=== PATIENT | male | born 1965 ===

== ENCOUNTER 2018-02-13 11:57 | Emergency (ER) | payer OTHER ==
[~2018-02-13] VITALS: Ht 172.7 cm; Wt 78.6 kg
[2018-02-13 12:21] LABS: BASO # 0.1 (0.02-0.10); EOS # 0.3 (0.04-0.40); EOS % 3.6 % (0.0-4.0); HEMATOCRIT 46.8 % (42.0-52.0); HEMOGLOBIN 15.6 g/dL (13.5-18.0); LYMPH# 2.7 (1.50-4.00); MEAN CELL VOLUME 91 fl (78-100); MEAN CORPUSCULAR HEMOGLOBIN 30 pg (27-31); MEAN CORPUSCULAR HGB CONC 33 g/dL (33-37); MEAN PLATELET VOLUME 8.9 fl (7.4-10.4); MONO # 0.9 (0.20-0.80); NEU # 3.2 (1.40-6.50); PLATELET COUNT 313 K/mm3 (130-400); RED BLOOD COUNT 5.16 M/mm3 (4.20-5.60); RED CELL DISTRIBUTION WIDTH 13.9 % (11.5-14.5); WHITE BLOOD COUNT 7.2 K/mm3 (4.8-10.8)
[2018-02-13] MEDS ORDERED: antiviral (12:22)
[2018-02-13 12:33] LABS: BUN/CREATININE RATIO 12.1 (6.0-26.0); CALCIUM 9.3 mg/dL (8.4-10.2); POTASSIUM 3.8 mmol/L (3.6-5.0); TOTAL BILIRUBIN 0.2 mg/dL (0.2-1.3); TOTAL PROTEIN 7.6 g/dL (6.3-8.2)
[2018-02-13 12:36] LABS: CKMB ISOENZYME 0.9 ng/mL (0.6-3.5)
[2018-02-13 12:45] LABS: PROTHROMBIN TIME 9.3 SECONDS (9.0-12.0)
[2018-02-13 13:28] LABS: TROPONIN-I < 0.03 ng/mL (0.00-0.06)
[2018-02-13 14:55] VITALS: BP 120/71
== END 2018-02-13 13:13 | disposition short-term general hospital (02) ==
LOC: ED 11:57
PROVIDERS: Nurse Practitioner Primary Care
DX: I21.3 ST elevation (STEMI) myocardial infarction of unspecified site (principal); F17.210 Nicotine dependence, cigarettes, uncomplicated; B20 Human immunodeficiency virus [HIV] disease
CPT/HCPCS: J1644; J2270; J2405; J3101; J7030

== ENCOUNTER 2018-03-04 15:20 | Outpatient (RCR) | payer OTHER ==
[~2018-03-04 15:20] MED LIST: antiviral
== END 2018-06-02 | disposition home or self-care (01) ==
LOC: CARDREHAB
DX: Z48.812 Encounter for surgical aftercare following surgery on the circulatory system (principal); Z95.1 Presence of aortocoronary bypass graft; I21.9 Acute myocardial infarction, unspecified

== ENCOUNTER 2018-09-30 13:30 | Outpatient (RCR) | payer OTHER | END 2018-09-30 14:00 | disposition home or self-care (01) | LOC: PT 13:30 | DX: M25.511 Pain in right shoulder (principal); M62.838 Other muscle spasm ==

== ENCOUNTER 2019-06-21 10:21 | Emergency (ER) | payer OTHER ==
[~2019-06-21] VITALS: Ht 172.7 cm; Wt 77.3 kg
[2019-06-21] MEDS ORDERED: CHILDREN'S ASPI81 M1 PO (10:39)
[2019-06-21] MEDS ORDERED: ATRIPLA PO (10:39)
[2019-06-21] MEDS ORDERED: ATORVASTATIN CA80 MG PO (10:39)
[2019-06-21] MEDS ORDERED: GOOD NEIGH1200 MG/15 PO (10:39)
[2019-06-21 11:00] LABS: URINE APPEARANCE CLEAR; URINE COLOR YELLOW; URINE GLUCOSE NEGATIVE (NEGATIVE); URINE PROTEIN(semi-quant) TRACE mg/dL (NEGATIVE)
[2019-06-21 11:01] LABS: URINE BILIRUBIN NEGATIVE (NEGATIVE); URINE BLOOD TRACE (NEGATIVE); URINE KETONE NEGATIVE (NEGATIVE); URINE LEUKOCYTE ESTERASE NEGATIVE (NEGATIVE); URINE MUCUS PRESENT (NOT PRESENT); URINE NITRATE NEGATIVE (NEGATIVE); URINE UROBILINOGEN NORMAL (NORMAL)
[2019-06-21 11:02] LABS: EOS # 0.1 (0.04-0.40); EOS % 1.9 % (0.0-4.0); HEMATOCRIT 47.1 % (42.0-52.0); HEMOGLOBIN 15.8 g/dL (13.5-18.0); LYMPH# 1.3 (1.50-4.00); MEAN CELL VOLUME 91 fl (78-100); MEAN CORPUSCULAR HEMOGLOBIN 31 pg (27-31); MEAN CORPUSCULAR HGB CONC 34 g/dL (33-37); MEAN PLATELET VOLUME 8.9 fl (7.4-10.4); MONO # 0.8 (0.20-0.80); NEU # 5.2 (1.40-6.50); PLATELET COUNT 239 K/mm3 (130-400); RED BLOOD COUNT 5.17 M/mm3 (4.20-5.60); RED CELL DISTRIBUTION WIDTH 14.4 % (11.5-14.5); WHITE BLOOD COUNT 7.5 K/mm3 (4.8-10.8)
[2019-06-21 11:12] LABS: POTASSIUM 3.9 mmol/L (3.5-5.1)
[2019-06-21 11:14] LABS: CALCIUM 9.4 mg/dL (8.3-10.5)
[2019-06-21 11:15] LABS: TOTAL PROTEIN 7.3 g/dL (6.4-8.3)
[2019-06-21 11:17] LABS: TOTAL BILIRUBIN 0.5 mg/dL (0.2-1.2)
[2019-06-21 13:42] VITALS: BP 125/78
== END 2019-06-21 13:42 | disposition home or self-care (01) ==
LOC: ED 10:21
PROVIDERS: Physician Assistant
DX: M79.18 Myalgia, other site (principal); I25.10 Atherosclerotic heart disease of native coronary artery without angina pectoris; I25.2 Old myocardial infarction; F17.210 Nicotine dependence, cigarettes, uncomplicated; Z21 Asymptomatic human immunodeficiency virus [HIV] infection status; Z79.02 Long term (current) use of antithrombotics/antiplatelets; Z79.82 Long term (current) use of aspirin; Z88.5 Allergy status to narcotic agent; Z95.1 Presence of aortocoronary bypass graft
CPT/HCPCS: J1885

== ENCOUNTER → 2020-02-24 | Outpatient (CLI) | payer SELFPAY ==
[~2020-02-24] MED LIST changes: +ATORVASTATIN CA80 MG PO; +ATRIPLA PO; +CHILDREN'S ASPI81 M1 PO; +GOOD NEIGH1200 MG/15 PO
== END ==
LOC: LAB 13:52
DX: J02.9 Acute pharyngitis, unspecified (principal); R19.7 Diarrhea, unspecified; R06.02 Shortness of breath

== ENCOUNTER → 2020-12-30 | Outpatient (CLI) | payer MEDICARE ==
[2020-12-30 16:55] LABS: ALBUMIN 3.8 g/dL (3.5-5.0); POTASSIUM 4.4 mmol/L (3.5-5.1)
[2020-12-30 16:56] LABS: CALCIUM 8.7 mg/dL (8.3-10.5)
[2020-12-30 16:57] LABS: TOTAL PROTEIN 6.8 g/dL (6.4-8.3)
[2020-12-30 16:59] LABS: TOTAL BILIRUBIN 0.3 mg/dL (0.2-1.2)
== END ==
LOC: LAB 16:25
PROVIDERS: Family Medicine
DX: R06.6 Hiccough (principal)

== ENCOUNTER → 2023-08-30 | Day surgery (SDC) | payer OTHER | END | disposition home or self-care (01) | LOC: MSO 06-14 00:47 | DX: Z12.11 Encounter for screening for malignant neoplasm of colon (principal); D12.5 Benign neoplasm of sigmoid colon; B20 Human immunodeficiency virus [HIV] disease; F17.210 Nicotine dependence, cigarettes, uncomplicated; Z79.899 Other long term (current) drug therapy | CPT/HCPCS: 00811; J2704; J7120 ==

== ENCOUNTER → 2023-09-30 | Outpatient (CLI) | payer MEDICARE | LOC: LAB 09:42 | DX: U07.1 COVID-19 (principal); J06.9 Acute upper respiratory infection, unspecified ==

== ENCOUNTER → 2024-05-19 | Outpatient (CLI) | payer MEDICARE ==
[2024-05-19 14:39] LABS: HEMATOCRIT 48.6 % (42.0-52.0); HEMOGLOBIN 15.9 g/dL (13.5-18.0); MEAN PLATELET VOLUME 8.7 fl (7.4-10.4); RED BLOOD COUNT 5.14 M/mm3 (4.20-5.60); WHITE BLOOD COUNT 5.5 K/mm3 (4.8-10.8)
[2024-05-19 14:48] LABS: CALCIUM 9.8 mg/dL (8.3-10.5)
== END ==
LOC: LAB 14:19
PROVIDERS: Internal Medicine Interventional Cardiology
DX: R94.39 Abnormal result of other cardiovascular function study (principal)